=== PATIENT | female | born 1995 | race Caucasian/White ===

== ENCOUNTER 2021-04-06 19:45 | Emergency (ER) | payer BC, SELFPAY ==
--- NOTE | ~2021-04-06 | CT_ITS ---
EXAMINATION: CT abdomen pelvis wo con DATE: 04/07/2021 00:54 INDICATION: Low abdominal pain, pelvic cramping TECHNIQUE: Computed tomography (CT) of the abdomen and pelvis was performed without intravenous contr ast. Automated exposure control and iterative reconstruction technique were employed. Exam dose: 586 .67 mGy-cm total exam DLP. COMPARISON: None. FINDINGS: The lung bases are clear of infiltrate or consolidation. Normal heart size. No pericardial or pleural effusion. The gallbladder is present. No gallbladder wall thickening or pericholecystic fluid or fat stranding. No hepatic, splenic, pancreatic, adrenal or renal space-occupying mass lesion or urinary tract calcul us or hydronephrosis. Normal caliber of the abdominal aorta. No intraperitoneal or retroperitoneal or pelvic mass lesion or adenopathy or ascites. The urinary bladder is unremarkable. The uterus is present. Bilateral large pelvic cystic areas are noted, measuring up to approximately 8 cm on the left, 5 cm o n the right suggesting bilateral ovarian cystic lesions. Pelvic ultrasound is recommended for correla tion. No free pelvic fluid collection is evident. No CT evidence of appendicitis. No bowel obstruction, bowel wall thickening, pneumatosis or intraperi toneal free air. Small fat-containing umbilical hernia. Included skeletal structures are unremarkable. IMPRESSION: Large bilateral pelvic cystic masses, likely bilateral ovarian cystic lesions; pelvic ul trasound examination is recommended. Reviewed, dictated and finalized at [facility]. Reviewed, dictated and finalized at [facility]. [facility] IMPRESSION: Large bilateral pelvic cystic masses, likely bilateral ovarian cys tic lesions; pelvic ultrasound examination is recommended.
[2021-04-06 19:47] VITALS: BP 158/92; PULSE 92; RESP 20; TEMP 36.1; O2SAT 100
[2021-04-06 23:52] LABS: Basophils Absolute Auto 0.1 K/mm3 (0.0-0.1); Basophils Percent Auto 0.7 % (0.2-1.2); Hemoglobin 12.4 g/dL (12.0-15.0); Immature Granulocyte Absolute 0.03 K/mm3 (0.00-0.031); Immature Granulocyte Percent A 0.3 % (0-0.5); Lymphocytes Absolute Auto 1.86 K/mm3 (0.9-3.2); Lymphocytes Percent Auto 20.2 % (18.3-44.2); Mean Corpuscular HGB Conc 33.5 g/dl (32-36); Mean Corpuscular Hemoglobin 29.2 pg (26-34); Mean Corpuscular Volume 87.3 fl (80-100); Mean Platelet Volume 9.2 fl (7.4-10.4); Monocytes Absolute Auto 0.5 K/mm3 (0.1-0.6); Monocytes Percent Auto 5.3 % (2.6-8.5); Neutrophils Absolute Auto 6.8 K/mm3 (1.3-6.7); Neutrophils Percent Auto 73.5 % (45.5-73.1); Platelet Count Result 342 k/mm3 (150-375); Red Blood Count 4.24 M/mm3 (4.2-5.4); Red Cell Distribution Width 12.9 % (11.5-14.5); White Blood Count 9.2 K/mm3 (4.5-10.0)
[2021-04-07] LABS: Add Urine Microscopic? YES; Appearance Urine Clear (Clear); Bilirubin Urine Negative (Negative); Blood Urine Negative (Negative); Color Urine Yellow (Yellow); Glucose Urine UA Negative (Negative); Ketones Urine Negative (Negative); Leukocyte Esterase Ur Negative LEU/UL (Negative); Mucus Urine Rare /lpf; Nitrate Urine Negative (Negative); Protein Urine Negative (Negative); RBC Urine 0-2 /hpf (0-2); Specific Grav Ur 1.019 (1.001-1.035); Squamous Epithelial Cell Urine Rare /hpf (Few); WBC Urine 0-3 /hpf
[2021-04-07 00:07] LABS: Alanine Aminotransferase 15 U/L (4-35); Albumin Level 4.4 g/dL (3.5-5.1); Alkaline Phosphatase 83 U/L (38-126); Anion Gap 8 mmol/L (8-16); Aspartate Amino Transferase 33 U/L (14-36); Bilirubin,Total 0.5 mg/dL (0.2-1.3); Blood Urea Nitrogen 12 mg/dL (7-17); Calcium 9.3 mg/dL (8.4-10.2); Carbon Dioxide 23 mmol/L (22-30); Chloride 104 mmol/L (98-107); Estimated CRCL calculation 124 ml/min; Estimated Glomerular Filt Rate > 60; Glucose 109 mg/dL (65-110); Lipase 46 U/L (23-300); Potassium 3.9 mmol/L (3.4-5.0); Sodium 135 mmol/L (137-145)
--- NOTE | 2021-04-07 01:00 | PC.NURSE ---
Pt to CT scan at this time.
[2021-04-07 01:19] VITALS: BP 118/82; PULSE 80; RESP 18; O2SAT 99
--- NOTE | 2021-04-07 01:30 | ED.GENADULT ---
HPI - General Adult General Chief complaint: Abdominal Pain Stated complaint: abd pain, miscarriage 2 weeks ago Time Seen by Provider: 04/06/21 23:19 History of Present Illness HPI narrative: Patient with 5-year-old female presents emergency department chief complaint of lower abdominal pain. Patient reports she had a recent miscarriage and reports that she has got cramping and pain in her lower quadrants of her abdomen. The patient reports that is not improved by anything worsened by movement patient denies fever denies dysuria denies vaginal discharge. Related Data Allergies Allergy/AdvReac Type Severity Reaction Status Date / Time No Known Allergies Allergy Verified 04/06/21 19:54 Review of Systems Review of Systems: A 10 system review of systems was completed on the patient and is negative except for what is stated in the HPI. Nursing and ancillary documentation was reviewed. Exam Narrative: GENERAL: Well-appearing, well-nourished, and in no acute distress. HEAD: Normocephalic, atraumatic. EYES: PERRLA and EOMI. ENT: Nares clear, no rhinorrhea or epistaxis. Mucous membranes moist. NECK: Supple. CHEST: Clear to auscultation. No respiratory distress. HEART: Regular rate and rhythm. No murmur heard. Normal peripheral pulses. ABDOMEN: Soft, tender to palpation of the lower quadrants, nondistended, normal active bowel sounds. EXTREMITIES: Normal range of motion. No edema. SKIN: Warm, dry, no rash. NEURO: No focal deficits. Alert and oriented x3. PSYCH: Normal mood and affect. Course Vital Signs Vital signs: Vital Signs Temperature 36.1 C L 04/06/21 19:47 Pulse Rate 92 04/06/21 19:47 Respiratory Rate 20 04/06/21 19:47 Blood Pressure 158/92 H 04/06/21 19:47 Pulse Oximetry 100 04/06/21 19:47 Temperature 36.1 C L 04/06/21 19:47 Pulse Rate 80 04/07/21 01:19 Respiratory Rate 18 04/07/21 01:19 Blood Pressure 118/82 04/07/21 01:19 Pulse Oximetry 99 04/07/21 01:19 Medical Decision Making Vital Signs Vital Signs: Vital Signs Temperature 36.1 C L 04/06/21 19:47 Pulse Rate 92 04/06/21 19:47 Respiratory Rate 20 04/06/21 19:47 Blood Pressure 158/92 H 04/06/21 19:47 Pulse Oximetry 100 04/06/21 19:47 Temperature 36.1 C L 04/06/21 19:47 Pulse Rate 80 04/07/21 01:19 Respiratory Rate 18 04/07/21 01:19 Blood Pressure 118/82 04/07/21 01:19 Pulse Oximetry 99 04/07/21 01:19 Lab Data Result diagrams: 04/06/21 23:44 04/06/21 23:44 Labs: Lab Results 04/06/21 04/06/21 04/06/21 Range/Units 23:44 23:44 23:44 WBC 9.2 (4.5-10.0) K/mm3 RBC 4.24 (4.2-5.4) M/mm3 Hgb 12.4 (12.0-15.0) g/dL Hct 37.0 (37.0-47.0) % MCV 87.3 (80-100) fl MCH 29.2 (26-34) pg MCHC 33.5 (32-36) g/dl RDW 12.9 (11.5-14.5) % Plt Count 342 (150-375) k/mm3 MPV 9.2 (7.4-10.4) fl Immature Gran % (Auto) 0.3 (0-0.5) % Neut % (Auto) 73.5 H (45.5-73.1) % Lymph % (Auto) 20.2 (18.3-44.2) % Stark % (Auto) 5.3 (2.6-8.5) % Eos % (Auto) 0.0 (0-4.4) % Baso % (Auto) 0.7 (0.2-1.2) % Lymph # (Auto) 1.86 (0.9-3.2) K/mm3 Stark # (Auto) 0.5 (0.1-0.6) K/mm3 Eos # (Auto) 0.0 (0-0.3) K/mm3 Baso # (Auto) 0.1 (0.0-0.1) K/mm3 Abs Immat Gran (auto) 0.03 (0.00-0.031) K/mm3 Absolute Neuts (auto) 6.8 H (1.3-6.7) K/mm3 Absolute Nucleated RBC 0.0 (0.0-0.012) K/mm3 Nucleated RBC % 0.0 (0.0-0.2) % Sodium 135 L (137-145) mmol/L Potassium 3.9 (3.4-5.0) mmol/L Chloride 104 (98-107) mmol/L Carbon Dioxide 23 (22-30) mmol/L Anion Gap 8 (8-16) mmol/L BUN 12 (7-17) mg/dL Creatinine 0.60 L (0.7-1.0) mg/dL Estim Creat Clear Calc 124 ml/min Estimated GFR > 60 (59 - ) Glucose 109 (65-110) mg/dL Calcium 9.3 (8.4-10.2) mg/dL Total Bilirubin 0.5 (0.2-1.3) mg/dL AST 33 (14-36) U/L ALT 15 (4-35) U/L Alkaline Phosp
[2021-04-07 03:09] VITALS: BP 116/68; PULSE 88; RESP 15; O2SAT 100
== END 2021-04-07 03:11 | disposition home or self-care (01) ==
PROVIDERS: Emergency Provider Emergency Medicine
DX: N83.209 Unspecified ovarian cyst, unspecified side (principal)
CPT/HCPCS: 36415; 74176; 80053; 81001; 81025; 83690; 85025; 99284